=== PATIENT | male | born 1990 | race Two or more races ===

== ENCOUNTER 2018-06-30 06:23 | Day surgery (SDC) | payer OTHER ==
[~2018-06-30] VITALS: Ht 182.9 cm; Wt 119.3 kg
[2018-06-30] VITALS (12 sets, daily range): BP systolic 108–151; BP diastolic 67–87
[~2018-06-30 06:23] MED LIST: AMOXICILLIN500 MG ORAL; ceFAZolin 1gm in D5W 55ml IVP ONE; celeBREX 200mg Cap **SURGERY PATIENTS ONLY ORAL ONE; oxyCONTIN 20mg tab ORAL ONE
--- NOTE | 2018-06-30 07:11 | Operative Note - PDOC ---
Operative Note Operative Note Pre-op Diagnosis: left knee internal derangement Procedure: see op report Post-op Diagnosis: same as pre-op plus Operative Findings: consistent w/pre-op dx studies Anesthesia: MAC Specimen: none Complications: none Condition: stable Estimated Blood Loss: none Implant(s) used?: No Chago Guaman MD Jun 30, 2018 07:11
--- NOTE | 2018-06-30 07:11 | Pre-Procedure Note/Attestation ---
Pre-Procedure Note/Attestation Complete Prior to Procedure Planned Procedure: left Procedure Narrative: knee arthroscopy medial menisectomy Indications for Procedure Pre-Operative Diagnosis: left knee internal derangement Attestation I attest that I discussed the nature of the procedure; its benefits; risks and complications; and alternatives (and the risks and benefits of such alternatives ), prior to the procedure, with the patient (or the patient's legal counter sales representative). I attest that, if there was a reasonable possibility of needing a blood transfusion, the patient (or the patient's legal counter sales representative) was given the [facility] standardized written summary, pursuant to the Abdirashid Kimberly Blood Safety Act ([place] Health and Safety Code # 1645, as amended). I attest that I re-evaluated the patient just prior to the surgery and that there has been no change in the patient's H&P, except as documented below: Chago Guaman MD Jun 30, 2018 07:11
[2018-06-30] MEDS ORDERED: D5 1/2NS 1,000 ML IV SCH (07:15)
[2018-06-30] MEDS ORDERED: HYDROmorphone 1mg/ml Carpuject SUBQ PRN (07:15)
[2018-06-30] MEDS ORDERED: Norco 5mg/325mg tab ORAL PRN (07:15)
[2018-06-30] MEDS ORDERED: Tylenol #3 tab (300mg/30mg) ORAL PRN (07:15)
[2018-06-30] MEDS ORDERED: fentaNYL 100 mcg/2 mL IV ONE (08:30)
[2018-06-30] MEDS ORDERED: Midazolam 2mg/2ml Inj ONE (08:30)
[2018-06-30] MEDS ORDERED: Ketorolac 30mg Inj ONE ×2 (08:31→08:42)
[2018-06-30] MEDS ORDERED: Lidocaine 1% MPF 10mg/ml 5ml ONE (08:31)
[2018-06-30] MEDS ORDERED: Propofol 200mg/20ml IV ONE (08:31)
[2018-06-30] MEDS ORDERED: EPINEPHrine 1mg/1ml Amp ONE (08:41)
[2018-06-30] MEDS ORDERED: Lidocaine 1% 10mg/ml/Epi 0.005mg/ml 30ml vial INJ ONE ×2 (08:42→09:00)
[2018-06-30] MEDS ORDERED: Kenalog-40 1ml Vial ONE (08:42)
[2018-06-30] MEDS ORDERED: Bupivacaine 0.5% Inj 30 ml vial INJ ONE ×2 (08:42→09:00)
[2018-06-30] MEDS ORDERED: Sterile Water Irrig 1000ml IRRIG ONE (09:00)
[2018-06-30] MEDS ORDERED: Duramorph PF 10mg/10ml amp IT ONE (09:00)
[2018-06-30] MEDS ORDERED: NS Irrig 4000ml IRRIG ONE (09:00)
[2018-06-30] MEDS ORDERED: NS Irrig 1000ml ONE (09:00)
[2018-06-30] MEDS ORDERED: Kenalog-40 1ml Vial INJ ONE (09:00)
[2018-06-30] MEDS ORDERED: Ketorolac 30mg Inj IM ONE (09:00)
[2018-06-30] MEDS ORDERED: LR 1000ml ONE (09:00)
[2018-06-30] MEDS ORDERED: Morphine Sulfate PF 10 ML ONE (09:11)
[2018-06-30] MEDS ORDERED: LR 1000ml 1,000 ML IVLG SCH (09:12)
--- NOTE | 2018-06-30 09:12 | Anethesia Preoperative Eval ---
Anesthesia Pre-op PMH/ROS General Date of Evaluation: Jun 30, 2018 Time of Evaluation: 08:35 Anesthesiologist: Kandy ASA Score: ASA 2 Mallampati Score Class I : Soft palate, uvula, fauces, pillars visible Class II: Soft palate, uvula, fauces visible Class III: Soft palate, base of uvula visible Class IV: Only hard plate visible Mallampati Classification: Class II Surgeon: Deniz Diagnosis: L knee pain Surgical Procedure: L knee scope Anesthesia History: none Family History: no anesthesia problems Allergies: Coded Allergies: No Known Allergies (Unverified , 06/29/18) Medications: see eMAR Past Medical History Cardiovascular: Denies: HTN, CAD, RI, valve dz, arrhythmia, other Pulmonary: Denies: asthma, COPD, DONTRELL, other Gastrointestinal/Genitourinary: Reports: GERD; Denies: CRI, ESRD, other Neurologic/Psychiatric: Denies: dementia, CVA, depression/anxiety, TIA, other Endocrine: Denies: DM, hypothyroidism, steroids, other HEENT: Denies: cataract (L), cataract (R), glaucoma, EGEGIK (L), EGEGIK (R), other Hematology/Immune: Denies: anemia, DVT, bleeding disorder, other Musculoskeletal/Integumentary: Denies: OA, RA, DJD, DDD, edema, other Other: obesity PMH Narrative: as above PSxH Narrative: None Anesthesia Pre-op Phys. Exam Physician Exam Last Vital Signs Date Time Temp Pulse Resp B/P (MAP) Pulse Ox O2 Delivery O2 Flow Rate FiO2 06/30/18 07:50 Room Air 06/30/18 07:48 96.8 80 18 151/87 (108) 97 96.8 Constitutional: NAD Neurologic: CN 2-12 intact Cardiovascular: RRR Respiratory: CTA Gastrointestinal: S/NT/ND Airway Exam Mallampati Score: Class II MO: full Neck: flexible ROM: full Teeth: intact Dentures: no upper, no lower Anesthesia Pre-op A/P Labs see chart Risk Assessment & Plan Assessment: ASA 2 Plan: GA with LMA Status Change Before Surgery: No Pre-Antibiotics Drug: Ancef 2gr. Given Within 1 Hr of Incision: Yes Time Given: 08:54 Valentino Gaitan MD Jun 30, 2018 09:12
[2018-06-30] MEDS ORDERED: Meperidine 50mg/ml Inj(FOR RIGORS ONLY) IV PRN (09:15)
[2018-06-30] MEDS ORDERED: Metoclopramide 10mg/2ml Inj IVP PRN (09:15)
[2018-06-30] MEDS ORDERED: Midazolam 2mg/2ml Inj IVP PRN (09:15)
[2018-06-30] MEDS ORDERED: Ketorolac 30mg Inj IV PRN (09:15)
--- NOTE | 2018-06-30 10:15 | Immediate Post-Op Evaluation ---
Immediate Post-Op Evalulation Immediate Post-Op Evalulation Procedure: L knee scope Date of Evaluation: Jun 30, 2018 Time of Evaluation: 09:28 IV Fluids: 700 Blood Products: none Estimated Blood Loss: min Urinary Output: none Blood Pressure Systolic: 136 Blood Pressure Diastolic: 78 Pulse Rate: 108 Respiratory Rate: 20 O2 Sat by Pulse Oximetry: 98 Temperature (Fahrenheit): 97.7 Pain Score (1-10): 1 Nausea: No Vomiting: No Complications none Patient Status: reacts, patent, none Hydration Status: adequate Valentino Gaitan MD Jun 30, 2018 10:15
--- NOTE | 2018-06-30 10:40 | 48 Hour Post Anesthesia Eval ---
Post Anesthesia Evaluation Procedure: L knee scope Date of Evaluation: Jun 30, 2018 Time of Evaluation: 10:38 Blood Pressure Systolic: 108 0: 56 Pulse Rate: 86 Respiratory Rate: 20 Temperature (Fahrenheit): 99.6 O2 Sat by Pulse Oximetry: 98 Airway: patent Nausea: No Vomiting: No Pain Intensity: 1 Hydration Status: adequate Cardiopulmonary Status: stable Mental Status/LOC: patient returned to baseline Follow-up Care/Observations: n/a Post-Anesthesia Complications: none Follow-up care needed: ready to discharge Valentino Gaitan MD Jun 30, 2018 10:40
--- NOTE | 2018-06-30 18:30 | Operative Note - Dictated ---
DATE OF OPERATION: 06/30/2018 PREOPERATIVE DIAGNOSES: 1. Left knee arthrofibrosis. 2. Left knee internal derangement, possible meniscal tear. POSTOPERATIVE DIAGNOSES: 1. Left knee grade 2 chondral damage, medial patellar facet. 2. Hypertrophic synovial tissue/fat pad of medial, lateral, and patellofemoral compartment. 3. A small tear of posterior horn of medial meniscus. PROCEDURES: 1. Left knee arthroscopic partial medial meniscectomy. 2. Synovectomy/excision of fat pad of medial, lateral, and patellofemoral compartment. 3. Gentle chondroplasty of patellofemoral compartment. SURGEON: Chago Guaman M.D. ANESTHESIA: MAC and local. INDICATION FOR PROCEDURE: The patient is a 27-year-old gentleman who had direct trauma to his left knee. He had significant difficulty with bending the knee. He was unable to bend to approximately 90 degrees. There was concern. He had an MRI, which showed a tear in the meniscus. He failed conservative treatment. Given the he elected to undergo left knee diagnostic arthroscopy, possible meniscectomy, synovectomy. The patient understood, prior to surgery, once he was under anesthesia, examination of the knee would be performed. If the knee bent comfortably past 90 degrees, then he might have some degree of possible complex regional pain syndrome that may be an issue that might have to be addressed after surgery. Additional risks including infection, nerve and vessel damage, continued pain, need for future surgery were discussed in detail. All questions were addressed. DESCRIPTION OF PROCEDURE: After informed consent was obtained, the patient was brought to the operating room. The patient was placed supine under monitored anesthesia control. Tourniquet was applied to the left proximal thigh. The leg was prepped and draped in sterile manner. Time-out was performed. Examination under anesthesia showed the knee flexed comfortably to 130 degrees once the patient was appropriately anesthetized. Inferolateral stab incision was then made. Trocar was introduced into the knee joint. There was hypertrophic synovial tissue making visualization of the patellofemoral compartment more difficult. Medial compartment was entered. There was significant hypertrophic fat pad and synovial tissue. Medial working portal was established. Synovectomy and excision of the fat pad in the medial compartment, intercondylar notch, lateral compartment, and patellofemoral compartment was all completed. At this point, attention was turned to the diagnostic procedure. Medial compartment was entered. There was some fraying along the medial body. Partial meniscectomy using a shaver was performed. Once that was done, the intercondylar notch was entered. The ACL was probed. There was significant edema in the intercondylar notch, but the ACL itself was intact. Lateral compartment was entered and free from the meniscal or chondral damage. Camera was positioned in the patellofemoral compartment. There was grade 2 chondral damage of the medial patellar facet. At this point, the instruments were removed. Portal sites were closed with 3-0 Monocryl sutures. Intraarticular injection containing 0.25% Marcaine with epinephrine, 40 mg of Kenalog, 30 mg of Toradol, and 5 mL of Duramorph was injected into the left knee. ESTIMATED BLOOD LOSS: None. COMPLICATIONS: None. SPECIMENS: None. IMPLANTS: None. Chago Guaman M.D. DR: Orestes JOB#: [id number] CC: QUEENIE
== END 2018-06-30 11:20 | disposition home or self-care (01) ==
LOC: SUR 06:23 → EDSEX 10:45 → SUR 11:20
DX: M23.222 Derangement of posterior horn of medial meniscus due to old tear or injury, left knee (principal); M67.262 Synovial hypertrophy, not elsewhere classified, left lower leg; M94.9 Disorder of cartilage, unspecified; K21.9 Gastro-esophageal reflux disease without esophagitis; E66.9 Obesity, unspecified
CPT/HCPCS: 29876; 29881; J0171; J0690; J1885; J2175; J2250; J2274; J2405; J2704; J3010; J3301; J3490; J7120; 94003; 94150